=== PATIENT | male | born 1940 | race Caucasian/White ===

== ENCOUNTER → 2017-05-09 | Outpatient (CLI) | payer OTHER ==
[2014-10-09 08:47] VITALS: BP 158/90
[~2017-05-09] MED LIST: ASPI-482 PO; ATEN25TA PO; FINA5TAB4 PO; NAPR-677 PO; PRAS50CA PO; SIMV10TA3 PO; TEST200V3 IM
--- NOTE | 2017-05-09 12:41 | RAD ---
Indication anticipated thoracic surgery. Preop. Frontal and lateral views of the chest were obtained and are compared to an examination 08/03/2013. Postoperative changes are noted. There are suspect background changes of fibrosis. There is no consolidated pneumonia. There is no pleural fluid or pneumothorax. There is a healed right rib fracture. Overall a significant change compared to the previous exam is not seen. Heart size is at the upper limits of normal. The pulmonary vasculature is normal. IMPRESSION: No acute finding in the chest. No significant change
== END | disposition home or self-care (01) ==
LOC: DXRADRC 11:48
PROVIDERS: ATTEND General Practice
DX: Z01.818 Encounter for other preprocedural examination (principal)
CPT/HCPCS: 71020

== ENCOUNTER → 2019-10-20 | Day surgery (SDC) | payer MEDICARE ==
[~2019-10-20] MED LIST changes: +ACETAMINOPHEN 325 MG TABLET PO PRN; +ALBUTEROL SULFATE 2.5 MG/3 ML NEBU. NEB PRN; +APIX5TAB3 PO; +ASPI81TA50 PO; -ATEN25TA PO; +ATEN25TA42 PO; +ATORVASTATIN CA80 MG PO; +ATROPINE 0.5 MG/5 ML DISP.SYRIN. IV PRN; +BALANCED SALT IRRIG OPHTH SOLN 15 ML BOTTLE. IRR ONE; +CATARACT OPHTH GEL 0.5 ML SYRINGE. OS ONE; +CHONDROIT-SOD-HYALURONATE KIT. OS ONE; +CYAN500T52 PO; +EPINEPHrine AMPULE 0.5 MG in BALANCED SALT IRRIG SOLN PLUS 500 ML IO ONE; +ERYTHROMYCIN 0.5% OPHTH OINTMENT 1GM TUBE. OS ONE; +FERR236T2 PO; +HYALURONIDASE 75UNITS in LIDOCAINE 2% PF OPHTH 10 ML SYRINGE. OS ONE; +HYDR12.58 PO; +IV RINGERS SOLUTION,LACTATED 1,000 ML IV SCH; +KETOROLAC TROMETHAMINE 0.5% OPHTH SOLUTION BOTTLE. ONE; +KETOROLAC TROMETHAMINE 0.5% OPHTH SOLUTION BOTTLE. OS SCH; +LIDO/EPI IN BSS OPHTH 8 ML SYRINGE OS ONE; +MOXIFLOXACIN 0.5% OPHTH SOLUTION 3ML BOTTLE. OS SCH; +OMEP40CA45 PO; +ONDANSETRON PF 4 MG/2 ML VIAL. IV PRN; +POVIDONE-IODINE 5% OPHTH SOLUTION 30ML BOTTLE. OS ONE; +SIMV10TA15 PO; -SIMV10TA3 PO; +TAMS0.4C97 PO; +TETRACAINE 0.5% OPHTH SOLUTION 4ML BOTTLE. OS ONE; +TETRACAINE 0.5% OPHTH SOLUTION 4ML BOTTLE. OU ONE; +diazePAM 5 MG TABLET PO SCH; +diphenhydrAMINE 50 MG/ML VIAL IV PRN; +prednisoLONE ACETATE 1% OPHTH SUSPENSION 5ML BOTTLE. ONE; +prednisoLONE ACETATE 1% OPHTH SUSPENSION 5ML BOTTLE. OS SCH
[2019-10-20 08:55] VITALS: BP 155/85
[2019-10-20] MEDS: MOXIFLOXACIN 0.5% OPHTH SOLUTION 3ML BOTTLE. OS SCH ×3 (09:18→09:30)
--- NOTE | 2019-10-20 10:24 | PDOC4 ---
CATARACT Operative Report DATE DATE: 10/20/19 TIME: 10:22 Operation Performed OPERATIVE REPORT Name: Mayank Mcwilliams Operation Date: Preoperative Diagnosis: 1. Senile cataract, LEFTeye. 2. Inadequate pupillary dilation. Postoperative Diagnosis: 1. Senile cataract, LEFT:eye. 2. Inadequate pupillary dilation. Operation: 1. Phacoemulsification with posterior chamber intraocular lens implant. 2. Iris stretching via placement of Malyugan ring. Surgeon: Maryam Frias D.O. Anesthesia: Local with monitored anesthesia care Description of Operation: Under cardiac monitoring, the patient received peribulbar anesthesia in the holding area. Pressure was applied to the eye with a Honan balloon for approximately 10 minutes. The patient was taken to the operating room and placed in a supine position and the periorbital region was prepped and draped in the usual sterile fashion. A lid speculum was placed between the eyelids. A temporal clear corneal incision was made with a keratome. 1 cc of epi-Shugarcaine was injected into the anterior chamber. Viscoelastice was injected into the eye. A side port incision was made three clock hours to the left of the clear corneal incision. Due to c ontinued poor dilation not responsive to epi-Shugarcaine, a Malyugan ring was placed. A cystotome and capsule forceps were used to make a continuous tear capsulorhexus. Hydrodissection was performed with balanced salt solution. The phacoemulsification needle was placed into the eye and the cataract was removed. The remaining cortical material was removed with the irrigation and aspiration apparatus. The posterior capsule was noted to be clean and intact. Viscoelastic was injected into the eye inflating the capsular bag. A foldable intraocular lens was injected into the eye, unfolding as desired, and positioned in the capsular bag. The Malyugan ring was then removed from the eye. The viscoelastic was aspirated from the eye. The wound edges were hydrated with balanced salt solution. There were no wound leaks. Viscoelastic was injected over the side port and clear corneal inc isions. One drop of Vigamox and one drop of prednisolone acetate were instilled into the eye. The lid speculum was removed and a pressure dressing with a Guevara shield was placed over the eye. The patient was taken to the recovery room in good condition. SVEN FRIAS DO Oct 20, 2019 10:24
[2019-10-20 10:40] VITALS: BP 127/58
== END | disposition home or self-care (01) ==
LOC: SURG 07:36
PROVIDERS: ATTEND Ophthalmology
DX: H25.89 Other age-related cataract (principal)
CPT/HCPCS: 66982; J0171; V2623; V2632

== ENCOUNTER 2021-08-07 12:55 | Emergency (ER) | payer MEDICARE ==
[~2021-08-07] VITALS: Ht 177.8 cm; Wt 85.9 kg
[~2021-08-07 12:55] MED LIST changes: -ACETAMINOPHEN 325 MG TABLET PO PRN; -ALBUTEROL SULFATE 2.5 MG/3 ML NEBU. NEB PRN; -ATROPINE 0.5 MG/5 ML DISP.SYRIN. IV PRN; -BALANCED SALT IRRIG OPHTH SOLN 15 ML BOTTLE. IRR ONE; -CATARACT OPHTH GEL 0.5 ML SYRINGE. OS ONE; -CHONDROIT-SOD-HYALURONATE KIT. OS ONE; -CYAN500T52 PO; +CYAN500T7 PO; -EPINEPHrine AMPULE 0.5 MG in BALANCED SALT IRRIG SOLN PLUS 500 ML IO ONE; -ERYTHROMYCIN 0.5% OPHTH OINTMENT 1GM TUBE. OS ONE; -HYALURONIDASE 75UNITS in LIDOCAINE 2% PF OPHTH 10 ML SYRINGE. OS ONE; -IV RINGERS SOLUTION,LACTATED 1,000 ML IV SCH; -KETOROLAC TROMETHAMINE 0.5% OPHTH SOLUTION BOTTLE. ONE; -KETOROLAC TROMETHAMINE 0.5% OPHTH SOLUTION BOTTLE. OS SCH; -LIDO/EPI IN BSS OPHTH 8 ML SYRINGE OS ONE; -MOXIFLOXACIN 0.5% OPHTH SOLUTION 3ML BOTTLE. OS SCH; -OMEP40CA45 PO; +OMEP40CA7 PO; -ONDANSETRON PF 4 MG/2 ML VIAL. IV PRN; -POVIDONE-IODINE 5% OPHTH SOLUTION 30ML BOTTLE. OS ONE; -TETRACAINE 0.5% OPHTH SOLUTION 4ML BOTTLE. OS ONE; -TETRACAINE 0.5% OPHTH SOLUTION 4ML BOTTLE. OU ONE; -diazePAM 5 MG TABLET PO SCH; -diphenhydrAMINE 50 MG/ML VIAL IV PRN; -prednisoLONE ACETATE 1% OPHTH SUSPENSION 5ML BOTTLE. ONE; -prednisoLONE ACETATE 1% OPHTH SUSPENSION 5ML BOTTLE. OS SCH
[2021-08-07] MEDS ORDERED: ONDANSETRON PF 4 MG/2 ML VIAL. IVP ONE (13:30)
[2021-08-07] MEDS ORDERED: IV NORMAL SALINE 1,000ML 1,000 ML IV ONE (13:30)
[2021-08-07] MEDS ORDERED: MORPHINE SULFATE 2 MG/ML DISP.SYRIN. IV ONE ×2 (13:30→14:15)
[2021-08-07 13:43] LABS: BASO % 0 % (0-3); EOS # 0.1 x10^3/uL (0.0-0.7); EOS % 1 % (0-3); HEMATOCRIT 32.5 % (39.0-53.0); HEMOGLOBIN 10.6 g/dL (13.0-17.5); LYMPH # 1.6 x10^3/uL (1.0-4.8); LYMPH % 11 % (24-48); MEAN CORPUSCULAR HEMOGLOBIN 31 pg (25-35); MEAN CORPUSCULAR HGB CONC 33 g/dL (31-37); MEAN CORPUSCULAR VOLUME 95 fL (79-100); MONO # 1.3 x10^3/uL (0.0-1.1); MONO % 9 % (0-9); NEUT # 10.9 x10^3uL (1.8-7.7); NEUT % 79 % (31-73); PLATELET COUNT 188 x10^3/uL (140-400); RED BLOOD COUNT 3.41 x10^6/uL (4.30-5.70); RED CELL DISTRIBUTION WIDTH 13.9 % (11.5-14.5); WHITE BLOOD COUNT 13.9 x10^3/uL (4.0-11.0)
[2021-08-07 13:45] LABS: HEMOGLOBIN ISTAT 10.5 gm/dL; POTASSIUM ISTAT 3.6 mmol/L (3.5-5.0)
[2021-08-07] MEDS ORDERED: HYDROmorphone PF 1 MG/ML DISP.SYRIN IVP ONE (14:30)
--- NOTE | 2021-08-07 14:33 | RAD ---
INDICATION: Reason: flank pain HX OF KIDNEY STONES / Spl. Instructions: / History: . COMPARISON: None. TECHNIQUE: Axial CT images obtained through the abdomen and pelvis without contrast. One or more of the following individualized dose reduction techniques were utilized for this examinat ion: 1. Automated exposure control; 2. Adjustment of the mA and/or kV according to patient size; 3 . Use of iterative reconstruction technique. FINDINGS: There is some mild patchy opacities at the lung bases. Severe calcific atherosclerosis. There are some gallstones within the gallbladder. Multiple low-density lesions within the liver with some of the larger 1's having the appearance of cy stic lesions and some of them appearing higher than cystic density but not well characterized. For ex ample there is one in the right lobe the liver measuring approximately 18 mm which does not have the appearance of simple cyst. The pancreas is anteriorly displaced by right sided retroperitoneal hemorrhage. Lobulated appearance of the spleen. There are some calcifications as well as small low-density lesion s within the spleen which are too small to characterize. Exophytic soft tissue density extending off of the spleen at its left lateral aspect measuring approximately 18 x 5 mm. Lobulated appearance of t he left kidney with some regions of focal cortical thickening versus soft tissue mass. This includes posteriorly measuring up to approximately 2 cm. No hydronephrosis. Urinary bladder has a mildly prominent wall and is partially distended. Portions not well seen second florentino to arthroplasty hardware with associated artifact. There is a large right-sided retroperitoneal hemorrhage surrounding the right kidney as well as subca psular hemorrhage of the right kidney. This hemorrhage exerts mass effect on the adjacent structures. This hemorrhage extends throughout the majority of the craniocaudal dimension of the right side of t he abdomen which is approximately 25 cm. Its difficult to obtain a accurate axial measurement since t his hemorrhage interdigitates throughout the soft tissues but at the level of the kidney the hemorrha ge measures greater than 15 cm in diameter. There is a subcapsular component of the hemorrhage compre ssing the renal parenchyma with the thickness measuring at least 35 mm. There is either a exophytic m ass off of the right kidney or hemorrhage extending off of the right kidney. Colonic diverticulosis. There is a couple of loops of prominent small bowel at the left upper quadrant of the abdomen measuri ng up to about 3 cm. No high-grade transition point to suggest significant obstruction. Degenerative changes the spine. Multilevel central canal and neural foraminal stenosis. IMPRESSION: * Large right-sided retroperitoneal hemorrhage and subcapsular hemorrhage of the right kidney which can be seen with a ruptured right renal hemorrhage. * At the right kidney there is high density masslike structures seen which could be secondary to foc al regions of hemorrhage but a right renal mass could have this appearance as well and a nonemergent follow-up could be obtained to ensure that there is not a right renal neoplasm contributing to this a ppearance. The left kidney also has a region of cortical thickening and lobulation and can be evaluat ed at that time as well to ensure that this is cortical thickening rather than a solid mass. There is a lobulation or exophytic mass off of the spleen as well which can be further assessed at that time. * Low-density lesions within the liver. Some of them have the appearance of cystic lesions and other s are higher density which could be from complex cyst or solid lesion and nonemergent CT or MRI could better assess. * Report called to the emergency department at 2:25 PM on date of exam. Electronically signed by: Mario Ramirez MD (08/07/2021 2:31 PM) [id number]
--- NOTE | 2021-08-07 14:41 | PHYS DOC ---
Past History Past Medical History: Other (GRACE HENNING) Past Surgical History: Other Additional Past Surgical Histo: CABG x 2, mitral valve repair, back sx, cardiac ablation, (GRACE HENNING) Alcohol Use: Occasionally Drug Use: None (GRACE HENNING) General Adult EDM: Chief Complaint: FLANK PAIN HPI: HPI: Patient is an 81 year old male who presents with right-sided low back pain since 1030 this morning. Patient rates his pain 10/10 and radiates to his abdomen/groin. Patient reports associated nausea, but denies emesis, diarrhea, constipation, dysuria, hematuria. Patient states that he ate breakfast this morning without any issues. Patient reports he had a stroke a few years ago, possibly 2017 and had open heart surgery in 2003. Patient does have history of hypertension and does take blood thinners. Patient has no other complaints at this time. (GRACE HENNING) Review of Systems: Review of Systems: 12 systems reviewed. ROS negative except as mentioned in HPI. (GRACE HENNING) Current Medications: Current Meds: Current Medications Medications (Trade) Dose Ordered Sig/Oc Start Time Stop Time Status Last Admin Dose Admin Morphine Sulfate (Morphine 2mg Syringe) 2 mg 1X ONCE 08/07/21 14:15 08/07/21 14:16 DC 08/07/21 14:09 2 MG Ondansetron HCl (Zofran) 4 mg 1X ONCE 08/07/21 13:30 08/07/21 13:31 DC 08/07/21 13:46 4 MG Sodium Chloride 1,000 ml @ 1,000 mls/hr 1X ONCE 08/07/21 13:30 08/07/21 14:29 08/07/21 13:46 1,000 MLS/HR (GRACE HENNING) Allergies: Allergies: Allergies Coded Allergies Type Severity Reaction Last Updated Verified No Known Drug Allergies 10/14/19 No (GRACE HENNING) Physical Exam: PE: Constitutional: Well developed, well nourished, non-toxic appearance, patient is obviously in pain. Cardiovascular: Heart rate regular rhythm, no murmur. Lungs & Thorax: Bilateral breath sounds clear to auscultation. Abdomen: Bowel sounds normal, soft, left upper quadrant tenderness appreciated, no masses, no pulsatile masses. Skin: Warm, dry, no erythema, no rash. Back: No step-offs, no midline tenderness, no paraspinal tenderness, CVA tenderness appreciated bilaterally, straight leg raise test negative bilaterally. Extremities: No tenderness, no cyanosis, no clubbing, ROM intact, no edema. Neurologic: Alert and oriented x4, motor function grossly intact, sensory function is intact, no focal deficits noted. (GRACE HENNING) Current Patient Data: Labs: Laboratory Tests Test 08/07/21 13:20 White Blood Count 13.9 x10^3/uL (4.0-11.0) H Red Blood Count 3.41 x10^6/uL (4.30-5.70) L Hemoglobin 10.6 g/dL (13.0-17.5) L POC Hemoglobin 10.5 gm/dL Hematocrit 32.5 % (39.0-53.0) L POC Hematocrit 31 % Mean Corpuscular Volume 95 fL (79-100) Mean Corpuscular Hemoglobin 31 pg (25-35) Mean Corpuscular Hemoglobin Concent 33 g/dL (31-37) Red Cell Distribution Width 13.9 % (11.5-14.5) Platelet Count 188 x10^3/uL (140-400) Neutrophils (%) (Auto) 79 % (31-73) H Lymphocytes (%) (Auto) 11 % (24-48) L Monocytes (%) (Auto) 9 % (0-9) Eosinophils (%) (Auto) 1 % (0-3) Basophils (%) (Auto) 0 % (0-3) Neutrophils # (Auto) 10.9 x10^3uL (1.8-7.7) H Lymphocytes # (Auto) 1.6 x10^3/uL (1.0-4.8) Monocytes # (Auto) 1.3 x10^3/uL (0.0-1.1) H Eosinophils # (Auto) 0.1 x10^3/uL (0.0-0.7) Basophils # (Auto) 0.0 x10^3/uL (0.0-0.2) POC Sodium 144 mmol/L (135-145) POC Potassium 3.6 mmol/L (3.5-5.0) POC Chloride 106 mmol/L (98-110) POC Total CO2 22 mmol/L (23-32) L Anion Gap 20 mmol/L (6-14) H POC Blood Urea Nitrogen 35 mg/dL (8-26) H POC Creatinine 2.1 mg/dL (0.5-1.4) H Glucose Level 171 mg/dL (60-99) H POC Ionized Calcium (Sofiya) 1.30 mmol/L (1.13-1.32) Vital Signs: Vital Signs Date Time Temp Pulse Resp B/P (MAP) Pulse Ox O2 Delivery O2 Flow Rate FiO2 08/07/21 13:48 78 20 127/93 (104) 100 Room Air 08/07/21 13:11 97.6 (GRACE HENNING) Radiology/Procedures: Radiology/Procedures: PROCEDURE: CT ABDOMEN PELVIS WO CONTRAST INDICATION: Reason: flank pain HX OF KIDNEY STONES / Spl. Instructions: / History: . COMPARISON: None. TECHNIQUE: Axial CT images obtained through the abdomen and pelvis without contrast. One or more of the following individualized dose reduction techniques were utilized for this examination: 1. Automated exposure control; 2. Adjustment of the mA and/or kV according to patient size; 3. Use of iterative reconstruction technique. FINDINGS: There is some mild patchy opacities at the lung bases. Severe calcific atherosclerosis. There are some gallstones within the gallbladder. Multiple low-density lesions within the liver with some of the larger 1's having the appearance of cystic lesions and some of them appearing higher than cystic density but not well characterized. For example there is one in the right lobe the liver measuring approximately 18 mm which does not have the appearance of simple cyst. The pancreas is anteriorly displaced by right sided retroperitoneal hemorrhage. Lobulated appearance of the spleen. There are some calcifications as well as small low-density lesions within the spleen which are too small to characterize. Exophytic soft tissue density extending off of the spleen at its left lateral aspect measuring approximately 18 x 5 mm. Lobulated appearance of the left kidney with some regions of focal cortical thickening versus soft tissue mass. This includes posteriorly measuring up to approximately 2 cm. No hydronephrosis. Urinary bladder has a mildly prominent wall and is partially distended. Portions not well seen secondary to arthroplasty hardware with associated artifact. There is a large right-sided retroperitoneal hemorrhage surrounding the right kidney as well as subcapsular hemorrhage of the right kidney. This hemorrhage exerts mass effect on the adjacent structures. This hemorrhage extends throughou t the majority of the craniocaudal dimension of the right side of the abdomen which is approximately 25 cm. Its difficult to obtain a accurate axial measurement since this hemorrhage interdigitates throughout the soft tissues but at the level of the kidney the hemorrhage measures greater than 15 cm in diameter. There is a subcapsular component of the hemorrhage compressing the renal parenchyma with the thickness measuring at least 35 mm. There is either a exophytic mass off of the right kidney or hemorrhage extending off of the right kidney. Colonic diverticulosis. There is a couple of loops of prominent small bowel at the left upper quadrant of the abdomen measuring up to about 3 cm. No high-grade transition point to suggest significant obstruction. Degenerative changes the spine. Multilevel central canal and neural foraminal stenosis. IMPRESSION: * Large right-sided retroperitoneal hemorrhage and subcapsular hemorrhage of the right kidney which can be seen with a ruptured right renal hemorrhage. * At the right kidney there is high density masslike structures seen which could be secondary to focal regions of hemorrhage but a right renal mass could have this appearance as well and a nonemergent follow-up could be obtained to ensure that there is not a right renal neoplasm contributing to this appearance. The left kidney also has a region of cortical thickening and lobulation and can be evaluated at that time as well to ensure that this is cortical thickening rather than a solid mass. There is a lobulation or exophytic mass off of the spleen as well which can be further assessed at that time. * Low-density lesions within the liver. Some of them have the appearance of cystic lesions and others are higher density which could be from complex cyst or solid lesion and nonemergent CT or MRI could better assess. * Report called to the emergency department at 2:25 PM on date of exam. Electronically signed by: Mario Ramirez MD (08/07/2021 2:31 PM) [id number] (GRACE HENNING) Heart Score: C/O Chest Pain: No (GRACE HENNING) Course & Med Decision Making: Course & Med Decision Making Pertinent Labs and Imaging studies reviewed. (See chart for details) Work-up today will include labs, urinalysis and CT abdomen pelvis. Radiologist called to report critical finding of a left-sided retroperitoneal he morrhage extending 25 cm, likely due to kidney rupture. Radiology contacted IR at [facility]. Patient does show anemia, but is hemodynamically stable at this time. Patient will be transferred to [facility] for higher level of care. (GRACE HENNING) Dragon Disclaimer: Dragon Disclaimer: This electronic medical record was generated, in whole or in part, using a voice recognition dictation system. (GRACE HENNING) Attending Co-Sign The patient was seen and interviewed as well as examined at the bedside. The chart was reviewed. The case was discussed. Agree with the plan of care. (CASSIDY BOOKER DO) Departure Departure: Impression: Primary Impression: Retroperitoneal hemorrhage Additional Impressions: Renal hemorrhage, right Right renal mass Disposition: 02 SHORT TERM HOSPITAL Admitting Physician: Other (Mirza) (GRACE HENNING) Condition: GUARDED Referrals: KEERTHI BRAVO MD (PCP) GRACE HENNING Aug 07, 2021 14:41 CASSIDY BOOKER DO Aug 08, 2021 06:40
[2021-08-07 14:52] LABS: BACTERIA,URINE 0 /HPF (0-FEW); BILIRUBIN,URINE NEG (NEG); CLARITY,URINE CLEAR; COLOR,URINE YELLOW; GLUCOSE,URINE NEG (NEG); NITRITE,URINE NEG (NEG); RBC,URINE OCC /HPF (0-2); UROBILINOGEN,URINE 0.2 mg/dL (0.2 mg/dL); WBC,URINE 0 /HPF (0-4)
[2021-08-07 15:14] VITALS: BP 132/80
[2021-08-07 15:31] LABS: ALBUMIN 3.3 g/dL (3.4-5.0); TOTAL BILIRUBIN 1.2 mg/dL (0.2-1.0); TOTAL PROTEIN 6.4 g/dL (6.4-8.2)
[2021-08-07 15:58] LABS: DIRECT BILIRUBIN 0.3 mg/dL (0.0-0.2)
== END 2021-08-07 15:38 | disposition short-term general hospital (02) ==
LOC: ER 12:55
DX: N28.89 Other specified disorders of kidney and ureter (principal); R58 Hemorrhage, not elsewhere classified; Z95.1 Presence of aortocoronary bypass graft
CPT/HCPCS: 36415; 74176; 80047; 80076; 81001; 83690; 85025; 96361; 96374; 96375; 96376; 99285; J1170; J2270; J2405; J7030